=== PATIENT | male | born 1980 | race American Indian/Alaskan Native ===

== ENCOUNTER 2017-01-14 01:24 | Emergency (ER) | payer SELFPAY ==
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
[2017-01-14 04:04] VITALS: BP 129/80; PULSE 94; RESP 20; TEMP 97.8; O2SAT 97
--- NOTE | 2017-01-14 10:44 | RAD ---
PROCEDURE: Cervical spine dated 01/14/2017 HISTORY: injury COMPARISON: No prior study available comparison. TECHNIQUE: AP lateral and open-mouth views of the cervical spine performed. Note the examination is limited due to partial obscuration of the odontoid by overlying occiput h in the open-mouth projection. FINDINGS: No evidence of acute compression nor displaced fractures. Vertebral bodies exhibit normal stature. . Slight anterior subluxation of C5 over C6 however the facet joints are normally aligned. Disc space heights maintained. Prevertebral soft tissues unremarkable. IMPRESSION: No fracture seen. . Slight anterior subluxation C5 over C6. If symptoms persist, occult fracture or ligamentous/cord injury suspected clinically recommend followup MRI.
== END 2017-01-14 04:15 | disposition home or self-care (01) ==
LOC: C.ER 01:24
DX: S16.1XXA Strain of muscle, fascia and tendon at neck level, initial encounter (principal); S39.012A Strain of muscle, fascia and tendon of lower back, initial encounter; V89.2XXA Person injured in unspecified motor-vehicle accident, traffic, initial encounter